=== PATIENT | male | born 1935 | race Caucasian/White ===

== ENCOUNTER 2016-03-29 16:35 | Emergency (ER) | payer OTHER ==
[2016-03-29 16:36] VITALS: BMI 19.5
[2016-03-29 16:46] VITALS: TEMP 98.2
[2016-03-29 17:20] LABS: AUTOMATED EOSINOPHIL 1.8 % (0-5); AUTOMATED LYMPH 21.2 % (17-44); AUTOMATED MONOCYTE 8.8 % (3-10); AUTOMATED NEUTROPHIL 67.2 % (45-76); MPV 8.4 fL (7.4-10.4)
--- NOTE | 2016-03-29 17:21 | EDPRACDOC ---
- General Information Chief Complaint: Generalized Weakness Stated Complaint: SENT BY HOME HEALTH NURSE Time Seen by Provider: 03/29/16 17:00 Information Source: Patient Home Medications: Home Medications Atorvastatin Calcium 40 mg PO QHS 08/15/13 Apixaban [Eliquis] 2.5 mg PO BID #60 tablet 09/08/15 Aspirin [Aspirin, Chewable] 81 mg PO 0800 #100 tablet 09/08/15 Carvedilol [Coreg] 3.125 mg PO BID #60 tablet 09/08/15 Vit C/E/Zn/Coppr/Lutein/Zeaxan [Preservision Areds 2 Softgel] 1 cap PO DAILY 01/26 Desloratadine [Clarinex] 5 mg PO DAILY 03/29/16 Finasteride 5 mg PO DAILY 03/29/16 Furosemide [Lasix] 20 mg PO DAILY #7 tablet 03/29/16 Mirtazapine 30 mg PO HS 03/29/16 Allergies/Adverse Reactions: Allergies Allergy/AdvReac Type Severity Reaction Status Date / Time clopidogrel bisulfate Allergy Hypotension Verified 03/29/16 16:46 [From Plavix] rivaroxaban [From Xarelto] Allergy Bleeding Verified 03/29/16 16:46 - History of Present Illness HPI: PT SENT TO ER BY HOME HEALTH AFTER BEING FOUND TO HAVE ELEVATED BLOOD PRESSURE, INCREASED LOWER EXTREMITY SWELLING, ABNORMAL BREATH SOUNDS, AND TRANSIENT SPEECH DIFFICULTY. HISTORY OF RECENT CVA IN THE LAST YEAR. Shortness of Breath: Mild Relevant History: Reports: Heart Failure (CHF) Cough: Reports: Non-productive Associated Signs and symptoms: Reports: Cough. Denies: Fever, Nasal Symptoms, Vomiting ED Past Medical History - History Reviewed Yes Nurses notes reviewed and agree except as marked - Patient Medical History Neurological History: Reports: Cerebrovascular Accident (several CVAs) Cardiac History: Reports: Coronary Artery Disease, Atrial Fibrillation, Hypertension, Heart Attack (NSTEMI August 21, 2015), Cardiac Catheterization (2014August 2015), CABG, Hypercholesterolemia, Syncope GI/ History: Reports: Renal Disease (CKD), Kidney Stones, Gastroesophageal Reflux, Ulcer Psychological History: Denies: Depression, Substance Use Disorder Systemic History: Reports: Anemia. Denies: Cancer Surgical History: Reports: CABG, Cardiac Catheterization (August 2015), Tonsillectomy, Tonsillectomy/Adnoidectomy - Family Medical History Reports: Hypertension, Cardiac Disorders. Denies: Cancer - Social Medical History Smoking Status: Former smoker Social History: Denies: Substance Use Disorder Lives With: Family Lives In: Home EDM Review of Systems - Review of Systems ROS Negative Except as Marked: Yes All systems reviewed and were negative except as marked Constitutional: Fatigue, Weakness. negative: Fever Respiratory: Cough, Shortness of Breath Cardiovascular: Edema. negative: Chest Pain Gastrointestinal: negative: Pain, Vomiting - Physical Exam Constitutional: Alert Oriented to: Time, Person, Place Last recorded Vital Signs: Last Vital Signs Temp 98.2 F 03/29/16 16:42 Pulse 95 03/29/16 16:42 Resp 18 03/29/16 16:42 BP 174/104 H 03/29/16 16:42 Pulse Ox 95 03/29/16 16:42 Oxygen Pulse Oxygen Saturation 95 O2 Device Room Air Oxygen Flow Rate Fraction of Inspired Oxygen ( FIO2) - HEENT Head: negative: Deformity, Laceration Eye Exam: negative: Conjunctival Injection, Pale Conjunctiva Oropharynx: negative: Membranes Dry Nose: negative: Congestion, Discharge Neck: negative: Limited ROM - Respiratory/Cardiovascular Respiratory: Normal - CTA. negative: Accessory Muscle Use, Diminished, Tachypnea Cardiovascular: Irregular. negative: Bradycardia, Tachycardia - GI Auscultation: Normal Palpation: Normal Tenderness: Non tender - Musculoskeletal Extremities: Calf Tenderness, Pedal Edema (1+ BILATERAL), Pedal Pulse (PALPABLE) , Radial Pulse (PALPABLE) - Integumentary Skin: Warm, Dry. negative: Rash - Neurologic Memory Impaired: Normal Motor Function: Normal Mood Description: Anxious, Appropriate Thought: Coherent Perception: Normal ED SOB MDM - Results Result Diagrams: 03/29/16 16:51 03/29/16 16:51 - EKG EKG #1 EKG Time: 17:13 -: Yes EKG interpreted by me Rate: bpm: 81 Rhythm: Afib ST: Nonsp Decision Time to Discharge: 19:05 - Departure Yes I personally saw and evaluated the patient. Disposition: [facility] Facility Condition: Stable Final Diagnosis: Congestive heart failure Qualifiers: Congestive heart failure type: unspecified congestive heart failure type Congestive heart failure chronicity: acute on chronic Qualified Code(s): I50.9 - Heart failure, unspecified Instructions: Weakness (General), *Heart Failure (Activity, Diet, Worsening Symptoms, Weight Monitoring)(ED) Education/Counseling Given To: Patient, Family Member Education/Counseling Given Regarding: Diagnosis, Treatment, Prognosis, Follow Up Referrals: Miguel Ángel Delcid II, MD [Primary Care Provider] - 03/30/16 Prescriptions: Furosemide [Lasix] 20 mg PO DAILY #7 tablet Additional Instructions: PLEASE KEEP APPOINTMENT IN THE MORNING WITH DR. DELCID.
[2016-03-29 17:31] LABS: BLOOD UREA NITROGEN 16 MG/DL (9-20); CALCULATED OSMOLALITY 280 MOs/Kg (270-290); CHLORIDE 106 mEq/L (98-107); GLUCOSE 97 MG/DL (70-99); SODIUM LEVEL 145 mEq/L (137-146)
[2016-03-29 17:32] LABS: PARTIAL THROMB. TIME 27.6 SEC (22-35); PT-INR 1.1
--- NOTE | 2016-03-29 18:44 | DIRPT ---
CLINICAL DATA: Elevated blood pressure. Abnormal breath sounds. Lower extremity swelling. Initial encounter. EXAM: CHEST 2 VIEW COMPARISON: PA and lateral chest 02/12/2016. Single view of the chest 09/24/2014. FINDINGS: The patient is status post CABG. The lungs are clear. There is cardiomegaly. No pneumothorax or pleural effusion. IMPRESSION: Cardiomegaly without acute disease. Electronically Signed By: Mika Blevins M.D. On: 03/29/2016 18:41
--- NOTE | 2016-03-29 18:49 | DIRPT ---
CLINICAL DATA: Slurred speech, weakness. Increased blood pressure. Symptoms for 1 day. EXAM: CT HEAD WITHOUT CONTRAST TECHNIQUE: Contiguous axial images were obtained from the base of the skull through the vertex without intravenous contrast. COMPARISON: MRI 02/13/2016 FINDINGS: There is atrophy and chronic small vessel disease changes. No acute intracranial abnormality. Specifically, no hemorrhage, hydrocephalus, mass lesion, acute infarction, or significant intracranial injury. No acute calvarial abnormality. Visualized paranasal sinuses and mastoids clear. Orbital soft tissues unremarkable. IMPRESSION: No acute intracranial abnormality. Atrophy, chronic microvascular disease. Electronically Signed By: Ryan Lopez M.D. On: 03/29/2016 18:46
[2016-03-29] MEDS ORDERED: FUROSEMIDE 20 MG TAB PO ONE (19:04)
[2016-03-29 19:15] VITALS: BP 154/74; PULSE 72
== END 2016-03-29 19:25 | disposition home or self-care (01) ==
LOC: ED 16:35
DX: I50.9 Heart failure, unspecified (principal); R47.81 Slurred speech
CPT/HCPCS: 70450; 71020; 80053; 83880; 84484; 85025; 85610; 85730; 93005; 99284; A9270; J3490